=== PATIENT | male | born 1960 | race African-American/Black ===

== ENCOUNTER 2019-10-10 00:22 | Emergency (ER) | payer OTHER ==
[~2019-10-10] VITALS: Ht 172.7 cm; Wt 71.7 kg
[2019-10-10] MEDS ORDERED: PRINIVIL20 M1 PO (00:38)
[2019-10-10 01:10] LABS: ABSOLUTE NEUTROPHILS 3.4 thou/uL (1.4-8.2); BASOPHILS 0.6 % (0.0-2.0); EOSINOPHILS 1.6 % (0.0-3.0); HEMATOCRIT 44.7 % (42.0-52.0); HEMOGLOBIN 14.9 gm/dL (14.0-18.0); LYMPHOCYTES 19.1 % (24.0-44.0); MCH 31.9 pg (26.0-34.0); MCHC 33.3 g/dL (28.0-37.0); MCV 95.7 fL (80.0-100.0); MONOCYTES 9.8 % (1.0-8.0); PLATELET COUNT 266 thou/uL (150-400); POLYS 68.9 % (36.0-66.0); RBC 4.68 mil/uL (4.50-6.00); RDW 13.9 % (10.5-14.5); WBC 4.9 thou/uL (4.0-11.0)
[2019-10-10 01:16] LABS: ANION GAP 9 mmol/L (7-16); BUN 5 mg/dL (7-18); CALCIUM 8.6 mg/dL (8.5-10.1); CHLORIDE 103 mmol/L (98-107); CO2 27 mmol/L (21-32); CREATININE 1.1 mg/dL (0.7-1.3); GLUCOSE 124 mg/dL (74-106); POTASSIUM 3.6 mmol/L (3.5-5.1); SODIUM 139 mmol/L (136-145)
[2019-10-10 01:22] LABS: MAGNESIUM 2.2 mg/dL (1.8-2.4); TROPONIN-I <0.06 ng/mL (<0.06)
[2019-10-10 01:33] LABS: URINE BILIRUBIN NEGATIVE (Negative); URINE BLOOD TRACE (Negative); URINE CLARITY CLEAR; URINE COLOR YELLOW; URINE GLUCOSE-RANDOM* NEGATIVE (Negative); URINE KETONES NEGATIVE (Negative); URINE LEUKOCYTES-REFLEX NEGATIVE (Negative); URINE NITRITE-REFLEX NEGATIVE (Negative); URINE PROTEIN (DIPSTICK) TRACE (Negative); URINE UROBILINOGEN 0.2 E.U./dl (0.2-1.0)
[2019-10-10 01:39] LABS: AMP/METHAMP Negative (Negative); BARBITURATES Negative (Negative); BENZODIAZEPINES Negative (Negative); COCAINE POSITIVE (Negative); METHADONE Negative (Negative); OPIATES Negative (Negative); PCP POSITIVE (Negative)
[2019-10-10 05:32] VITALS: BP 166/11
--- NOTE | 2019-10-10 07:38 | EKG ---
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: [facility] : 1960 Requested By: Esvin Ross Order Number: [id number] MD: Osvaldo Toney Measurements Intervals [place] Rate: 67 P: 89 CT: 252 QRS: 71 QRSD: 103 T: 68 QT: 409 QTc: 432 Interpretive Statements Sinus rhythm Prolonged CT interval Minimal diffuse ST elevation, consider early repolarization No previous ECG available for comparison Electronically Signed On 10-10-2019 7:37:07 CDT by Osvaldo Toney [email or web address] <ELECTRONICALLY SIGNED> By: Osvaldo Toney MD, [facility] 10/10/19 0737 D: 0627 Osvaldo Toney MD, FACC /EPI
== END 2019-10-10 05:37 | disposition home or self-care (01) ==
LOC: ER 00:22
PROVIDERS: Emergency Medicine
DX: F10.129 Alcohol abuse with intoxication, unspecified (principal); F16.10 Hallucinogen abuse, uncomplicated; Z79.899 Other long term (current) drug therapy; Y90.9 Presence of alcohol in blood, level not specified